=== PATIENT | female | born 1975 | race Caucasian/White ===

== ENCOUNTER 2024-10-25 18:17 | Emergency (ER) | payer SELFPAY ==
[2024-10-25] MEDS: Ondansetron 4 MG Tab.DIS PO ONE (19:09)
[2024-10-25] MEDS: Alum Hydrox/Mag Hydrox/Simeth 15 ML, Lidocaine 2% 5 ML PO ONE (19:10)
== END 2024-10-25 20:28 | disposition home or self-care (01) ==
LOC: MW.ED 18:17
DX: K29.70 Gastritis, unspecified, without bleeding (principal)
CPT/HCPCS: 99283; A9270; J3490